=== PATIENT | female | born 1955 | race Asian ===

== ENCOUNTER 2020-07-27 21:44 | Emergency (ER) | payer SELFPAY ==
[~2020-07-27] VITALS: Ht 172.7 cm; Wt 100.0 kg
[2020-07-27 21:49] VITALS: BP 157/98
== END 2020-07-27 22:35 | disposition left against medical advice (07) ==
LOC: EMS 21:44
DX: I10 Essential (primary) hypertension (principal); Z53.21 Procedure and treatment not carried out due to patient leaving prior to being seen by health care provider